=== PATIENT | female | born 2000 | race Two or more races ===

== ENCOUNTER 2019-09-12 09:15 | Emergency (ER) | payer MEDICAID ==
[~2019-09-12] VITALS: Ht 162.6 cm; Wt 57.0 kg
--- NOTE | 2019-09-12 10:10 | NUR ---
PT GIVEN TWO BOTTLES OF WATER, URINE CUP, AND INSTRUCTIONS. VERBALIZES UNDERSTANDING, DENIES ANY FURTHER QUESTIONS, CONCERNS, OR NEEDS AT THIS TIME.
--- NOTE | 2019-09-12 11:08 | NUR ---
PT REMINDED MULTIPLE TIMES TO PROVIDE A URINE SAMPLE, UNABLE TO PROVIDE UNTIL NOW. PT REFUSED STRAIGHT CATH. URINE SAMPLE COLLECTED AND SENT AT THIS TIME. DENIES ANY FURTHER NEEDS OR CONCERNS, CALL LIGHT IN REACH.
[2019-09-12 11:37] LABS: CULTURE INDICATED? YES; MICROSCOPIC INDICATED
[2019-09-12 12:08] VITALS: BP 103/60
== END 2019-09-12 12:10 | disposition home or self-care (01) ==
LOC: ED 10:45
DX: O20.9 Hemorrhage in early pregnancy, unspecified (principal); O9A.211 Injury, poisoning and certain other consequences of external causes complicating pregnancy, first trimester; R10.30 Lower abdominal pain, unspecified; Z3A.09 9 weeks gestation of pregnancy; V49.49XA Driver injured in collision with other motor vehicles in traffic accident, initial encounter; Y93.89 Activity, other specified; Y92.89 Other specified places as the place of occurrence of the external cause; Y99.8 Other external cause status
CPT/HCPCS: 76801; 81001; 87077; 87086; 87186; 99284